=== PATIENT | male | born 1990 | race Caucasian/White ===

== ENCOUNTER 2020-01-18 15:44 | Emergency (ER) | payer OTHER, MEDICAID ==
[2020-01-18 16:23] VITALS: BP 129/82
[2020-01-18] MEDS ORDERED: KETOROLAC TROMETHAMINE INJ/PF 30 MG/1 ML SDV IM ONE (16:31)
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
== END 2020-01-18 17:00 | disposition home or self-care (01) ==
LOC: ER 15:44
DX: M54.5 Low back pain (principal); M79.10 Myalgia, unspecified site; V44.5XXA Car driver injured in collision with heavy transport vehicle or bus in traffic accident, initial encounter
CPT/HCPCS: 99284; 96372; J1885